=== PATIENT | female | born 1970 | race Caucasian/White ===

== ENCOUNTER 2018-02-08 10:23 | Emergency (ER) | payer MEDICAID ==
[~2018-02-08] VITALS: Ht 182.9 cm; Wt 92.0 kg
[2018-02-08 10:33] VITALS: BP 180/104
[2018-02-08] MEDS ORDERED: HYDROmorphone inj. 0.5 MG/0.5 ML DISP.SYRIN IV PRN (11:00)
[2018-02-08] MEDS ORDERED: normal saline 1000ML IV soln IVB ONE ×3 (11:00→12:45)
[2018-02-08] MEDS ORDERED: LORazepam 2 mg/ml vial IV ONE ×3 (11:00→12:45)
[2018-02-08] MEDS ORDERED: metoclopramide 5 mg/ml inj IV ONE (11:00)
[2018-02-08] MEDS ORDERED: diphenhydrAMINE 50 mg/ml inj IV ONE (11:00)
[2018-02-08 11:01] LABS: URINE HCG NEGATIVE (NEG)
[2018-02-08 11:03] LABS: CLARITY,URINE CLEAR (Clear); COLOR,URINE YELLOW (Yellow); GLUCOSE, URINE NEGATIVE (Neg); KETONES,URINE NEGATIVE (Neg); LEUKOCYTE ESTERASE ,URINE NEGATIVE (Neg); NITRITES, URINE NEGATIVE (Neg); OCCULT BLOOD,URINE SMALL (Neg); PH,URINE 8.5 (4.8-8.0); PROTEIN,URINE NEGATIVE (Neg); UA COLLECTION TYPE CLN CATCH MIDSTREAM; UROBILINOGEN,URINE 0.2 E.U/dL (0.2-1.0)
[2018-02-08 11:10] LABS: MUCUS STRANDS FEW /LPF (Neg); SQUAMOUS EPITHELIAL CELL,UR MODERATE /LPF (FEW)
[2018-02-08 11:13] LABS: BACTERIA,URINE FEW /HPF (Neg); TRANSITIONAL EPI CELLS,URINE MODERATE /HPF; WBC,URINE 0-4 /HPF (0-4)
[2018-02-08 11:34] LABS: BASOPHILS % (AUTO) 0 % (0-1); EOSINOPHILS % (AUTO) 0.2 % (0-6); HEMOGLOBIN 16.2 g/dl (12.0-16.0); LYMPHOCYTES # (AUTO) 1.1 X10'3 (1.1-4.8); LYMPHOCYTES % (AUTO) 7.7 % (21-51); MEAN CORPUSCULAR HEMOGLOBIN 30.9 PG (27.0-31.0); MEAN CORPUSCULAR HGB CONC 35.3 % (33.0-36.5); MEAN CORPUSCULAR VOLUME 87.7 FL (78-98); MEAN PLATELET VOLUME 8.1 FL (7.4-10.4); MONOCYTES # (AUTO) 0.4 X10'3 (0-0.9); MONOCYTES % (AUTO) 2.4 % (2-12); NEUTROPHILS # (AUTO) 13.2 X10'3 (1.8-7.7); NEUTROPHILS % (AUTO) 89.7 % (42-75); PLATELET COUNT 291 X10'3 (140-440); RED BLOOD COUNT 5.24 X10'6 (4.20-5.60); RED CELL DISTRIBUTION WIDTH 13.9 % (11.5-14.5); WHITE BLOOD COUNT 14.7 X10'3 (4.5-11.0)
[2018-02-08] MEDS: HYDROmorphone 1 mg/ml syringe IV PRN ×2 (11:34→13:34)
[2018-02-08 11:43] LABS: PROTHROMBIN TIME 9.9 SECONDS (9.0-12.0)
[2018-02-08 11:49] LABS: ALANINE AMINOTRANSFERASE 17 U/L (12-78); ALKALINE PHOSPHATASE 99 IU/L (46-116); AMYLASE 130 U/L (25-115); ANION GAP 10 (8-16); ASPARTATE AMINO TRANSFERASE 14 U/L (10-37); BILIRUBIN,TOTAL 0.5 MG/DL (0.1-1.0); BLOOD UREA NITROGEN 11 MG/DL (7-18); BUN/CREATININE RATIO 14.3 (6.6-38.0); CALCIUM 9.6 MG/DL (8.5-10.1); CHLORIDE 105 MMOL/L (99-107); CREATININE 0.77 MG/DL (0.40-0.90); GLUCOSE 125 MG/DL (70-104); LIPASE 118 U/L (73-393); SODIUM 140 MMOL/L (135-145); TOTAL CARBON DIOXIDE 25.5 MMOL/L (24-32); TOTAL PROTEIN 7.9 G/DL (6.4-8.2); eGFR 81 ML/MIN
[2018-02-08] MEDS ORDERED: haloperidol lactate 5mg/ml inj IM ONE (12:45)
[2018-02-08] MEDS ORDERED: magnesium 1gm/100ml D5W IVPB 100 ML IV ONE (12:45)
[2018-02-08 13:05] LABS: URINE AMPHETAMINE SCREEN NEGATIVE (Neg); URINE BARBITUATE SCREEN NEGATIVE (Neg); URINE BENZODIAZEPINES SCREEN NEGATIVE (Neg); URINE CANNABINOID SCREEN POSITIVE (Neg); URINE COCAINE SCREEN NEGATIVE (Neg); URINE METHADONE SCREEN NEGATIVE (Neg); URINE OPIATE SCREEN NEGATIVE (Neg); URINE PHENCYCLIDINE SCREEN NEGATIVE (Neg)
== END 2018-02-08 14:46 | disposition home or self-care (01) ==
LOC: ER 10:24
DX: R10.31 Right lower quadrant pain (principal); R11.2 Nausea with vomiting, unspecified; R19.7 Diarrhea, unspecified; F12.90 Cannabis use, unspecified, uncomplicated; Z90.49 Acquired absence of other specified parts of digestive tract; Z88.2 Allergy status to sulfonamides; Z88.6 Allergy status to analgesic agent; Z88.8 Allergy status to other drugs, medicaments and biological substances
CPT/HCPCS: 36415; 80053; 80305; 81001; 81025; 82150; 83690; 85025; 85610; 96361; 96365; 96372; 96375; 96376; 99284; J1170; J1200; J1630; J2060; J2765; J7030

== ENCOUNTER 2020-02-01 00:19 | Emergency (ER) | payer MEDICAID ==
[~2020-02-01] VITALS: Ht 182.9 cm; Wt 92.0 kg
[2020-02-01] MEDS ORDERED: ondansetron/PF 4mg/2ml inj IV ONE (00:45)
--- NOTE | 2020-02-01 01:03 | NUR ---
PT YELLING AND MOANING IN PAIN AND IS REQUESTING BENADRYL, ATIVAN, AND REGLAN. TYRONE MAHARAJ NOTIFIED
[2020-02-01 01:16] LABS: BASOPHILS # (AUTO) 0.1 X10'3 (0-0.2); BASOPHILS % (AUTO) 0.8 % (0-1); EOSINOPHILS # (AUTO) 0.1 X10'3 (0-0.9); EOSINOPHILS % (AUTO) 0.9 % (0-6); HEMATOCRIT 39.6 % (35.0-45.0); HEMOGLOBIN 14.1 g/dl (12.0-16.0); LYMPHOCYTES # (AUTO) 2.8 X10'3 (1.1-4.8); LYMPHOCYTES % (AUTO) 22.8 % (21-51); MEAN CORPUSCULAR HEMOGLOBIN 31.3 PG (27.0-31.0); MEAN CORPUSCULAR HGB CONC 35.7 g/dL (33.0-36.5); MEAN CORPUSCULAR VOLUME 87.6 FL (78-98); MEAN PLATELET VOLUME 8.3 FL (7.4-10.4); MONOCYTES # (AUTO) 0.8 X10'3 (0-0.9); MONOCYTES % (AUTO) 6.1 % (2-12); NEUTROPHILS # (AUTO) 8.7 X10'3 (1.8-7.7); NEUTROPHILS % (AUTO) 69.4 % (42-75); PLATELET COUNT 244 X10'3 (140-440); RED BLOOD COUNT 4.52 X10'6 (4.20-5.60); RED CELL DISTRIBUTION WIDTH 13.6 % (11.5-14.5); WHITE BLOOD COUNT 12.5 X10'3 (4.5-11.0)
[2020-02-01 01:19] LABS: ALANINE AMINOTRANSFERASE 17 U/L (12-78); ALBUMIN 3.5 G/DL (3.4-5.0); ALBUMIN/GLOBULIN RATIO 1.1 (1.1-1.5); ALKALINE PHOSPHATASE 75 IU/L (46-116); ANION GAP 8 (8-16); ASPARTATE AMINO TRANSFERASE 12 U/L (10-37); BILIRUBIN,TOTAL 0.6 MG/DL (0.1-1.0); BLOOD UREA NITROGEN 9 MG/DL (7-18); BUN/CREATININE RATIO 13.2 (6.6-38.0); CALCIUM 7.9 MG/DL (8.5-10.1); CHLORIDE 107 MMOL/L (99-107); CREATININE 0.68 MG/DL (0.40-0.90); GLUCOSE 99 MG/DL (70-104); LIPASE 111 U/L (73-393); SODIUM 141 MMOL/L (135-145); TOTAL CARBON DIOXIDE 25.7 MMOL/L (24-32); TOTAL PROTEIN 6.8 G/DL (6.4-8.2); eGFR > 90 ML/MIN
[2020-02-01] MEDS ORDERED: famotidine/PF 10 mg/ml inj IV ONE (01:20)
[2020-02-01] MEDS ORDERED: diphenhydrAMINE 50 mg/ml inj IV ONE (01:20)
[2020-02-01] MEDS ORDERED: haloperidol lactate 5mg/ml inj IV ONE (01:20)
--- NOTE | 2020-02-01 01:21 | NUR ---
TYRONE MAHARJA PUSHED 2.5 MG HALDOL IV HERSELF
--- NOTE | 2020-02-01 01:37 | NUR ---
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
[2020-02-01 01:39] LABS: POTASSIUM 2.9 MMOL/L (3.5-5.1)
[2020-02-01] MEDS ORDERED: potassium Cl 10 mEq/100mL bag IV ONE (01:55)
[2020-02-01] MEDS ORDERED: magnesium 2GM in 50ml NS 50 ML IV ONE (01:55)
[2020-02-01] MEDS ORDERED: LORazepam 2 mg/ml vial IV ONE (02:20)
[2020-02-01] MEDS ORDERED: potassium Cl 20 mEq SR tablet PO STA (03:45)
--- NOTE | 2020-02-01 03:52 | NUR ---
PT SLEEPING SOUNDLY, AWOKE PT TO SHARE PLAN OF DISCHARGE. PT STATES SHE IS STILL NAUSEOUS AND THEN FELL BACK TO SLEEP. NO SIGN OF DISTRESS OR RETCHING NOTED UNLIKE BEFORE.
[2020-02-01 04:09] VITALS: BP 167/105
== END 2020-02-01 04:10 | disposition home or self-care (01) ==
LOC: ER 00:19
DX: E87.6 Hypokalemia (principal); R11.2 Nausea with vomiting, unspecified; R19.7 Diarrhea, unspecified; R10.13 Epigastric pain; F17.200 Nicotine dependence, unspecified, uncomplicated; F12.90 Cannabis use, unspecified, uncomplicated; Z90.49 Acquired absence of other specified parts of digestive tract; Z88.8 Allergy status to other drugs, medicaments and biological substances; Z79.899 Other long term (current) drug therapy
CPT/HCPCS: 36415; 80053; 83690; 85025; 93005; 96365; 96366; 96368; 96375; 99285; J1200; J2060; J2405; J3475; J3480; J3490